=== PATIENT | male | born 1960 | race Caucasian/White ===

== ENCOUNTER 2017-07-21 21:13 | Emergency (ER) | payer BC ==
[~2017-07-21] VITALS: Ht 177.8 cm; Wt 83.0 kg
[2017-07-21 21:14] VITALS: BP 162/93; PULSE 91; RESP 16; TEMP 98.2; O2SAT 96
[2017-07-21 21:30] VITALS: BP 160/86; PULSE 94; RESP 16; TEMP 99.8; O2SAT 97
--- NOTE | 2017-07-21 21:35 | PD ---
HPI Chief Complaint: Cold / Flu Symptoms Time Seen by Provider: 21:25 Travel History International Travel<30 days: No Contact w/Intl Traveler<30days: No Traveled to known affect area: No History of Present Illness HPI 56-year-old male complains of sore throat, coughing congestion. Patient states the symptoms started 3 days ago. Patient states the cough is persistent and productive. Patient complained of sore throat. Patient denies any chest pain or shortness of breath. Patient denies abdominal pain. Patient denies any nausea vomiting diarrhea. Patient states that he has mild body ache. PFSH Social History Tobacco Use: No Allergies-Medications (Allergen,Severity, Reaction): Coded Allergies: No Known Allergies (Unverified , 07/21/17) Reported Meds & Prescriptions Reported Meds & Active Scripts Active Prednisone 20 Mg Tab 20 Mg PO BID [Phenergan W Codein] 10 Ml PO Q6HR Zithromax Z-Keith (Azithromycin) 250 Mg Dspk 250 Mg PO DIRECTED 500 MG (2 tabs) day 1, then 1 tab days 2-5. Review of Systems General / Constitutional: No: Fever Eyes: No: Visual changes HENT: Positive: Sore Throat, No: Headaches Cardiovascular: No: Chest Pain or Discomfort Respiratory: Positive: Cough, No: Shortness of Breath Gastrointestinal: No: Abdominal Pain Genitourinary: No: Dysuria Musculoskeletal: No: Pain Skin: No Rash Neurologic: No: Weakness Psychiatric: No: Depression Endocrine: No: Polydipsia Hematologic/Lymphatic: No: Easy Bruising Physical Exam Narrative GENERAL: Well-nourished, well-developed patient. SKIN: Focused skin assessment warm/dry. HEAD: Normocephalic. EYES: No scleral icterus. No injection or drainage. Throat: Mild erythematous. No exudate or edema. NECK: Supple, trachea midline. No JVD or lymphadenopathy. No meningismus CARDIOVASCULAR: Regular rate and rhythm without murmurs, gallops, or rubs. RESPIRATORY: Breath sounds equal bilaterally. No accessory muscle use. GASTROINTESTINAL: Abdomen soft, non-tender, nondistended. MUSCULOSKELETAL: No cyanosis, or edema. BACK: Nontender without obvious deformity. No CVA tenderness. Neurologic exam normal. Data Data Last Documented VS Vital Signs Date Time Temp Pulse Resp B/P (MAP) Pulse Ox O2 Delivery O2 Flow Rate FiO2 07/21/17 22:37 07/21/17 21:30 99.8 94 16 97 07/21/17 21:14 Room Air Orders Orders Chest, Single Ap (07/21/17 21:30) Acetamin-Codeine 120-12 Liq (Tylenol - C (07/21/17 22:30) Azithromycin (Zithromax) (07/21/17 22:30) Ed Discharge Order (07/21/17 22:20) MDM Medical Decision Making Medical Screen Exam Complete: Yes Emergency Medical Condition: Yes Interpretation(s) Last Impressions Chest X-Ray 07/21/17 2130 Signed Impressions: Service Date/Time: Friday, July 21, 2017 21:47 - CONCLUSION: No acute disease. There is no evidence of pneumonia. Vignesh Dickey MD Differential Diagnosis Differential diagnosis including viral syndrome, pharyngitis, bronchitis, pneumonia. Narrative Course 56-year-old male with sore throat, productive cough. Diagnosis Primary Impression: Bronchitis Additional Impression: Pharyngitis Qualified Codes: J02.9 - Acute pharyngitis, unspecified Patient Instructions: General Instructions Additional Instructions: Take medications as directed. Tylenol for fever. Follow-up with personal physician. Return if persistent problem or worse. Med/Other Pt SpecificInfo: Prescription(s) given Scripts Prednisone (Prednisone) 20 Mg Tab 20 MG PO BID, #6 TAB 0 Refills Prov: Rodriguez Ramos MD 07/21/17 [Phenergan W Codein] No Conflict Check 10 ML PO Q6HR for Cough, #120 Prov: Rodriguez Ramos MD 07/21/17 Azithromycin (Zithromax Z-Keith) 250 Mg Dspk 250 MG PO DIRECTED for Infection, #1 DSPK 0 Refills 500 MG (2 tabs) day 1, then 1 tab days 2-5. Prov: Rodriguez Ramos MD 07/21/17 Disposition: 01 DISCHARGE HOME Condition: Stable Rodriguez Ramos MD Jul 21, 2017 21:35
--- NOTE | 2017-07-21 22:08 | RADRPT ---
EXAM DATE/TIME: 07/21/2017 21:47 [facility] COMPARISON: No previous studies available for comparison. INDICATIONS : Cough, shortness of breath MEDICAL HISTORY : None. SURGICAL HISTORY : None. ENCOUNTER: Initial ACUITY: 1 day PAIN SCORE: 0/10 LOCATION: Bilateral chest FINDINGS: A single view of the chest demonstrates the lungs to be symmetrically aerated without evidence of mas s, infiltrate or effusion. The cardiomediastinal contours are unremarkable. Osseous structures are intact. CONCLUSION: No acute disease. There is no evidence of pneumonia. Vignesh Dickey MD on July 21, 2017 at 22:06 Board Certified Radiologist. This report was verified electronically.
[2017-07-21] MEDS ORDERED: PHENERGAN W CODEIN PO (22:22)
[2017-07-21] MEDS ORDERED: ZITHTAB PO (22:22)
[2017-07-21] MEDS ORDERED: PRED20 PO (22:22)
[2017-07-21] MEDS ORDERED: ACETAMINOPHEN/CODEINE ELIX 120 MG/12 MG/5 ML CUP PO ONE (22:30)
[2017-07-21] MEDS ORDERED: AZITHROMYCIN 250 MG TAB PO ONE (22:30)
== END 2017-07-21 22:37 | disposition home or self-care (01) ==
LOC: NEPE 21:13
DX: J40 Bronchitis, not specified as acute or chronic (principal)
CPT/HCPCS: 71010; 99284